=== PATIENT | female | born 1935 | race Caucasian/White ===

== ENCOUNTER 2020-09-24 15:55 | Inpatient (IN) | payer MEDICARE, BC ==
[~2020-09-24] VITALS: Ht 160 cm; Wt 41.3 kg
--- NOTE | 2020-09-24 16:10 | NUR ---
BIB DAUGHTER C/O DIZZINESS AND FAILURE TO THRIVE, "SHE IS NOT EATING, NOT DRINKING AND SLEEPS WHOLE DAYS FOR 1 WEEK NOW" PATIENT AWAKE ALERT AND ORIENTED X3, BREATHING EVEN AND UNLABORED, NO SOB NOTED.
[2020-09-24 16:47] LABS: BASOPHILS # (AUTO) 0.1 /CMM (0.0-0.2); BASOPHILS % (AUTO) 0.9 % (0.0-2.0); EOSINOPHILS % (AUTO) 0.3 % (0.0-6.0); HEMATOCRIT 42 % (33-45); HEMOGLOBIN 14.6 g/dL (11.5-14.8); LYMPHOCYTES # (AUTO) 0.9 /CMM (0.8-4.8); MEAN CORPUSCULAR HGB CONC 34 g/dl (31.0-36.0); MEAN CORPUSCULAR VOLUME 98 fL (82-100); MONOCYTES # (AUTO) 0.8 /CMM (0.1-1.30); MONOCYTES % (AUTO) 10.2 % (2.0-12.0); NEUTROPHILS # (AUTO) 6.3 /CMM (1.8-8.9); NEUTROPHILS % (AUTO) 77.6 % (43.0-81.0); PLATELET COUNT (AUTO) 206 /CMM (150-450); RED BLOOD CELL COUNT(AUTO) 4.31 MIL/uL (4.0-5.2); WHITE BLOOD COUNT (AUTO) 8.1 K/uL (4.3-11.0)
--- NOTE | 2020-09-24 16:56 | NUR ---
OXYGEN FURNACE OPERATOR AT BEDSIDE FOR XRAY.
[2020-09-24 16:59] LABS: CALCIUM, SERUM 9.7 mg/dL (8.5-10.1); CREATININE 0.9 mg/dL (0.6-1.3); POTASSIUM 3.3 mmol/L (3.5-5.1)
[2020-09-24 17:05] LABS: ALBUMIN 3.5 g/dL (3.4-5.0); BILIRUBIN,DIRECT 0.2 mg/dL (0.0-0.2); TOTAL PROTEIN, SERUM 6.6 g/dL (6.4-8.2)
[2020-09-24 17:51] LABS: THYROID STIMULATING HORMONE 0.818 uIU/mL (0.358-3.74)
[2020-09-24 18:10] LABS: BILIRUBIN,URINE SMALL (NEGATIVE); COLOR,URINE YELLOW (YELLOW); LEUKOCYTE ESTERASE ,URINE Negative (NEGATIVE); NITRITE, URINE Negative (NEGATIVE); PROTEIN,URINE Negative (NEGATIVE); UGLUCOSE Negative (NEGATIVE)
--- NOTE | 2020-09-24 18:13 | NUR ---
SHIRLEY AT BEDSIDE FOR EVAL. FAMILY AT BEDSIDE. COVID SWAB SENT TO LAB.
[2020-09-24 18:18] LABS: BACTERIA,URINE Rare /HPF (None Seen); RBC,URINE NONE SEEN /HPF (0-2); SQUAMOUS EPITHELIAL CELL,UR Few /HPF (None Seen); WBC,URINE NONE SEEN /HPF (0-3)
--- NOTE | 2020-09-24 18:19 | NUR ---
GPS BED 217 WHEN PATIENT IS MEDICALLY CLEARED.
[2020-09-24] MEDS ORDERED: MELA5TAB PO (18:52)
[2020-09-24] MEDS ORDERED: MAG30ORA PO (18:52)
[2020-09-24] MEDS ORDERED: LEVO88TA5 PO (18:52)
[2020-09-24] MEDS ORDERED: VORT20TA PO (18:52)
[2020-09-24] MEDS ORDERED: FLUO40CA49 PO (18:52)
[2020-09-24] MEDS ORDERED: QUET25TA PO (18:52)
[2020-09-24] MEDS ORDERED: DOCU-141 PO (18:52)
[2020-09-24] MEDS ORDERED: BUPR-96 PO (18:52)
[2020-09-24] MEDS ORDERED: CHOL200013 PO (18:52)
[2020-09-24] MEDS ORDERED: CALC200T42 PO (18:52)
[2020-09-24] MEDS ORDERED: ACET-2605 PO (18:52)
[2020-09-24] MEDS ORDERED: LOPE2CAP40 PO (18:52)
[2020-09-24] MEDS ORDERED: CYAN25008 SL (18:52)
[2020-09-24] MEDS ORDERED: DONE10TA44 PO (18:52)
[2020-09-24] MEDS ORDERED: LACT1CAP71 PO (18:52)
[2020-09-24 19:18] LABS: ALCOHOL, BLOOD < 3 mg/dL (0-0)
[2020-09-24 19:19] LABS: ACETAMINOPHEN < 2 ug/ml (10-30)
--- NOTE | 2020-09-24 19:32 | NUR ---
REPORT GIVEN TO LAURO SEYMOUR FOR EDILMA.
--- NOTE | 2020-09-24 20:10 | NUR ---
PT TO GPS VIA WHEELCHAIR.
[2020-09-24 20:30] VITALS: BP 132/66
[2020-09-24] MEDS ORDERED: DOCUSATE SODIUM 100 MG CAPSULE PO PRN (20:30)
[2020-09-24] MEDS ORDERED: MAG HYDROX/AL HYDROX/SIMETH 30 ML UDC PO PRN ×2 (20:30→21:00)
[2020-09-24] MEDS ORDERED: MISCELLANEOUS MED 1 EA EA PO PRN (20:30)
[2020-09-24] MEDS ORDERED: LOPERAMIDE HCL (2 MG CAP) 2 MG CAPSULE PO PRN (20:30)
--- NOTE | 2020-09-24 20:30 | NUR ---
PATIENT CAME FROM ER, AWAKE, A/O X4. NO S/S OF DISTRESS NOTED, NO COMPLAIN OF PAIN. V/S TAKEN AND RECORDED. FULL SKIN ASSESSMENTS DONE. SKIN IS INTACT. PATIENT IS COOPERATIVE. ENGAGED ON CONVERSATIONS. ANSWERS QUESTIONS. BLOOD SUGAR CHECKED PER [id number]. PATIENT IS AMBULATORY, STEADY GAIT. PATIENT REQUEST SOMETHING TO EAT. IV ON THE LEFT HAND G20 REMOVED, NO BLEEDING. PHOTO TAKEN AND PLACED IN THE CHART.
[2020-09-24] MEDS ORDERED: ACETAMINOPHEN 325 MG TABLET PO PRN (21:00)
[2020-09-24] MEDS ORDERED: BLOOD SUGAR DIAGNOSTIC 1 EACH STRIP IN ONE (21:00)
[2020-09-24] MEDS ORDERED: MAGNESIUM HYDROXIDE 30 ML UDC PO PRN (21:00)
[2020-09-24] MEDS: MIRTAZAPINE 15 MG TABLET PO SCH (22:00)
[2020-09-24] MEDS ORDERED: Medication Not On Formulary EA (Melatonin 5 MG) PO SCH (22:00)
[2020-09-25] MEDS: LEVOTHYROXINE SODIUM 88 MCG TABLET PO SCH (05:36)
[2020-09-25 08:00] VITALS: BP 119/64
[2020-09-25] MEDS ORDERED: ENSURE ENLIVE CHOC 237 ML CAN PO SCH (08:00)
[2020-09-25] MEDS: DONEPEZIL 5 MG TABLET PO SCH (09:15)
[2020-09-25] MEDS: LACTOBACILLUS RHAMNOSUS GG 1 EACH CAP.SPRINK PO SCH (09:15)
[2020-09-25] MEDS: CALCIUM CARBONATE (1250) 500 MG TABLET PO SCH ×2 (09:15→17:51)
[2020-09-25] MEDS: CHOLECALCIFEROL 1,000 UNIT TABLET (VIT D3) PO SCH (09:15)
[2020-09-25] MEDS: CYANOCOBALAMIN 500 MCG TABLET PO SCH (09:15)
[2020-09-25 16:00] VITALS: BP 128/72
[2020-09-25] MEDS: ENSURE ENLIVE CHOC 237 ML CAN PO SCH ×2 (16:17→17:53)
[2020-09-25 20:00] VITALS: BP 138/73
[2020-09-25 20:05] VITALS: BP 138/73
[2020-09-25] MEDS: MIRTAZAPINE 15 MG TABLET PO SCH (21:46)
[2020-09-26] MEDS: LEVOTHYROXINE SODIUM 88 MCG TABLET PO SCH (05:37)
[2020-09-26 06:28] LABS: BASOPHILS % (AUTO) 0.6 % (0.0-2.0); EOSINOPHILS % (AUTO) 0.3 % (0.0-6.0); HEMATOCRIT 44 % (33-45); HEMOGLOBIN 15.2 g/dL (11.5-14.8); LYMPHOCYTES # (AUTO) 0.9 /CMM (0.8-4.8); LYMPHOCYTES % (AUTO) 11.6 % (20.0-44.0); MEAN CORPUSCULAR HGB CONC 35 g/dl (31.0-36.0); MEAN CORPUSCULAR VOLUME 98 fL (82-100); MONOCYTES # (AUTO) 0.9 /CMM (0.1-1.30); MONOCYTES % (AUTO) 11.3 % (2.0-12.0); NEUTROPHILS # (AUTO) 5.9 /CMM (1.8-8.9); NEUTROPHILS % (AUTO) 76.2 % (43.0-81.0); PLATELET COUNT (AUTO) 182 /CMM (150-450); RED BLOOD CELL COUNT(AUTO) 4.46 MIL/uL (4.0-5.2); WHITE BLOOD COUNT (AUTO) 7.7 K/uL (4.3-11.0)
[2020-09-26 07:05] LABS: CALCIUM, SERUM 10.3 mg/dL (8.5-10.1); CREATININE 0.7 mg/dL (0.6-1.3)
[2020-09-26 08:00] VITALS: BP 124/73
[2020-09-26] MEDS: LACTOBACILLUS RHAMNOSUS GG 1 EACH CAP.SPRINK PO SCH (08:20)
[2020-09-26] MEDS: DONEPEZIL 5 MG TABLET PO SCH (08:20)
[2020-09-26] MEDS: CYANOCOBALAMIN 500 MCG TABLET PO SCH (08:20)
[2020-09-26] MEDS: CALCIUM CARBONATE (1250) 500 MG TABLET PO SCH ×2 (08:20→16:45)
[2020-09-26] MEDS: ENSURE ENLIVE CHOC 237 ML CAN PO SCH ×3 (08:20→16:45)
[2020-09-26] MEDS: CHOLECALCIFEROL 1,000 UNIT TABLET (VIT D3) PO SCH (08:20)
[2020-09-26] MEDS ORDERED: POTASSIUM CHLORIDE 20 MEQ TAB.PRT.SR PO ONE (09:30)
--- NOTE | 2020-09-26 13:42 | NUR ---
[facility]: Pedro from [facility] ([phone]) contacted the SW and stated that they will follow up with the pt once she is discharged back to her Assisted Living. He stated that the fax number is: [phone].
[2020-09-26 16:00] VITALS: BP 103/52
[2020-09-26 20:00] VITALS: BP 97/59
[2020-09-26] MEDS: MIRTAZAPINE 15 MG TABLET PO SCH (21:54)
[2020-09-26] MEDS: TEMAZEPAM 7.5 MG CAPSULE PO PRN (21:55)
[2020-09-27 06:00] VITALS: BP 97/59
[2020-09-27] MEDS: LEVOTHYROXINE SODIUM 88 MCG TABLET PO SCH (06:48)
[2020-09-27 07:11] LABS: CALCIUM, SERUM 9.2 mg/dL (8.5-10.1); CARBON DIOXIDE 30 mmol/L (21-32); CHLORIDE 101 mmol/L (98-107); CREATININE 0.5 mg/dL (0.6-1.3); GLUCOSE 150 mg/dL (74-106); POTASSIUM 3.3 mmol/L (3.5-5.1); SODIUM SERUM 138 mmol/L (136-145); UREA NITROGEN, BLOOD 20 mg/dL (7-18)
[2020-09-27 08:00] VITALS: BP 108/70
[2020-09-27] MEDS: CALCIUM CARBONATE (1250) 500 MG TABLET PO SCH ×2 (09:07→17:55)
[2020-09-27] MEDS: CYANOCOBALAMIN 500 MCG TABLET PO SCH (09:07)
[2020-09-27] MEDS: LACTOBACILLUS RHAMNOSUS GG 1 EACH CAP.SPRINK PO SCH (09:07)
[2020-09-27] MEDS: ENSURE ENLIVE CHOC 237 ML CAN PO SCH ×3 (09:07→17:55)
[2020-09-27] MEDS: DONEPEZIL 5 MG TABLET PO SCH (09:07)
[2020-09-27] MEDS: CHOLECALCIFEROL 1,000 UNIT TABLET (VIT D3) PO SCH (09:07)
--- NOTE | 2020-09-27 09:50 | NUR ---
Family Contact: SW contacted patient's daughter, Daniella Miranda [phone], to gather information for the patient's assessment as the patient is unable to provide this SW with sufficient information to complete assessment. Patient provided this SW with consent to speak with her daughter. SW was unable to reach Daniella, and left her a voicemail. SW will continue to follow up.
--- NOTE | 2020-09-27 09:51 | NUR ---
Facility Contact: CARLITO contacted [facility] [place] [address] [place] [address]; to discuss if patient will be able to return to the [facility] discharge. CARLITO spoke to Kina Darby who stated that this question would be best discussed with the patient's RN at the [facility], [place]. Patient's RNCarson was unavailable to speak at the moment and Kina stated that the patient's RN would call this SW back at a later time. CARLITO provided Kina with contact information.
--- NOTE | 2020-09-27 10:20 | NUR ---
Facility Contact: SW received a call from LION Byrd from [facility], [place] [address]; . SW asked patients RN if the patient will be able to return to this facility if there is a discharge plan for her to return to prior living arrangement. Patients RN stated that she can return to this facility. RN provided SW with information about the patient and stated that she has been sleeping a lot and has not been eating much since last 09/21/2020. RN mentioned that the patient has been neglecting her self-care and has been isolating. Patient has had a poor appetite and RN stated that she approximately lost 5-10 pounds. RN stated that the patient has had a few outbursts where she gets physical when staff have tried to give the patient her medication. SW informed RN that long term care social worker will be in contact with the facility if the patient and patients family agree for the patient to return to the facility.
[2020-09-27] MEDS ORDERED: POTASSIUM CHLORIDE 20 MEQ TAB.PRT.SR PO ONE (10:30)
--- NOTE | 2020-09-27 12:18 | NUR ---
Initial Discharge Plan: Pt plans to return to return to [facility], shelter at [address], [place] [address]; .CARLITO will work with the pt and the MD regarding appropriate discharge planning, SW will form a safe and proper discharge plan.
--- NOTE | 2020-09-27 13:40 | NUR ---
Family Contact: CARLITO received a missed call from patient's daughter Daniella, , who stated that she will be available around 14:00 and instructed CARLITO to contact her brother Jensen, if she is unavailable. CARLITO will call the patient's family at a later time.
--- NOTE | 2020-09-27 14:02 | NUR ---
Family Contact: Patient contacted patient's daughter, Daniella [phone] and patient's son, Jensen [phone] but was unable to speak to anyone. SW left a voicemail for Daniella and Jensen.
--- NOTE | 2020-09-27 15:43 | NUR ---
Family Contact: SW contacted patient's daughter, Daniella ([phone]), and discussed the pts treatment as well as receive collateral information. Pts daughter stated that the plan is for the pt to return to [facility] once she is stable. Information collected from the pts daughter: Pt has a history of alcoholism and was in Rehabilitation for 30 days in 2019. Pt has not been able to engage with alcohol since then. Pt has been psychiatrically hospitalized three times since 2012. After the last hospitalization the family placed the pt in Assisted Living. Pt has a history of not taking her medications and has a history of suicidal ideation as well.
[2020-09-27 16:00] VITALS: BP 140/58
[2020-09-27] MEDS ORDERED: risperiDONE 0.25 MG TABLET PO SCH (17:00)
[2020-09-27 20:00] VITALS: BP 122/64
[2020-09-27] MEDS: MIRTAZAPINE 15 MG TABLET PO SCH (21:30)
[2020-09-28] MEDS: LEVOTHYROXINE SODIUM 88 MCG TABLET PO SCH (05:34)
[2020-09-28 08:00] VITALS: BP 108/59
[2020-09-28] MEDS: DONEPEZIL 5 MG TABLET PO SCH (09:16)
[2020-09-28] MEDS: CYANOCOBALAMIN 500 MCG TABLET PO SCH (09:16)
[2020-09-28] MEDS: CHOLECALCIFEROL 1,000 UNIT TABLET (VIT D3) PO SCH (09:16)
[2020-09-28] MEDS: LACTOBACILLUS RHAMNOSUS GG 1 EACH CAP.SPRINK PO SCH (09:16)
[2020-09-28] MEDS: CALCIUM CARBONATE (1250) 500 MG TABLET PO SCH ×2 (09:16→16:14)
[2020-09-28] MEDS: ENSURE ENLIVE CHOC 237 ML CAN PO SCH ×3 (09:18→16:15)
[2020-09-28 16:00] VITALS: BP 135/83
[2020-09-28] MEDS: LORAZEPAM 0.5 MG TABLET PO PRN (16:25)
--- NOTE | 2020-09-28 16:29 | NUR ---
RN NOTE: ANXIETY PT SHAKING HANDS, SCREAMING, UNABLE TO REPOSITION SELF IN BED. MEDICATED WITH ATIVAN 0.5MG AND ASSISTED WITH REPOSITIONING IN BED. WILL MONITOR EFFECTIVENESS OF PRN.
[2020-09-28] MEDS: risperiDONE 0.25 MG TABLET PO SCH (18:00)
--- NOTE | 2020-09-28 18:42 | NUR ---
RN NOTE: FIRST DOSE RISPERDAL HELD DUE TO EMESIS. DR. CLEVELAND INFORMED. ORDER FOR ZOFRAN PO PRN
[2020-09-28] MEDS ORDERED: ONDANSETRON HCL 4 MG/5 ML SOLUTION PO PRN (19:00)
--- NOTE | 2020-09-28 20:00 | NUR ---
GPS RN NOTES RECEIVED LYING COMFORTABLY ON BED,CLAIMED SHE'S FREEZING,WARM BLANKET OFFERED,NAUSEA IMPROVED.MED COMPLIANT PER REPORT,FREQUENT ROUND OBSERVED PER PROTOCOL.WILL CONTINUE TO MONITOR BEHAVIOR.
[2020-09-28 20:34] VITALS: BP 150/83
[2020-09-28] MEDS: MIRTAZAPINE 15 MG TABLET PO SCH (21:55)
[2020-09-28 22:00] VITALS: BP 150/83
--- NOTE | 2020-09-28 22:00 | NUR ---
GPS RN NOTES REFUSED PO REMERON.OFFERED SLEEPING PILL BUT REFUSED WELL.NO NAUSEA/VOMITING NOTED.
[2020-09-29] MEDS: LEVOTHYROXINE SODIUM 88 MCG TABLET PO SCH (05:56)
[2020-09-29 08:00] VITALS: BP 151/65
[2020-09-29] MEDS: CHOLECALCIFEROL 1,000 UNIT TABLET (VIT D3) PO SCH (08:54)
[2020-09-29] MEDS: CYANOCOBALAMIN 500 MCG TABLET PO SCH (08:54)
[2020-09-29] MEDS: CALCIUM CARBONATE (1250) 500 MG TABLET PO SCH ×2 (08:55→16:48)
[2020-09-29] MEDS: DONEPEZIL 5 MG TABLET PO SCH (08:55)
[2020-09-29] MEDS: risperiDONE 0.25 MG TABLET PO SCH ×2 (08:55→21:47)
[2020-09-29] MEDS: LACTOBACILLUS RHAMNOSUS GG 1 EACH CAP.SPRINK PO SCH (08:55)
[2020-09-29] MEDS: ENSURE ENLIVE CHOC 237 ML CAN PO SCH ×3 (08:56→16:48)
[2020-09-29 16:00] VITALS: BP 107/54
[2020-09-29 20:25] VITALS: BP 92/55
[2020-09-29] MEDS: MIRTAZAPINE 15 MG TABLET PO SCH (21:47)
[2020-09-29] MEDS: TEMAZEPAM 7.5 MG CAPSULE PO PRN (22:32)
--- NOTE | 2020-09-29 22:33 | NUR ---
GPS RN NOTES: PATIENT REQUESTED FOR SLEEP MEDICATION. RESTORIL 7.5MG/1CAP GIVEN PO PRN ORDERED AT 2233. WILL CONTINUE TO MONITOR.
[2020-09-30] MEDS: LEVOTHYROXINE SODIUM 88 MCG TABLET PO SCH (06:12)
--- NOTE | 2020-09-30 06:23 | NUR ---
GPS RN NOTES: PATIENT REFUSED AM BLOOD DRAW FOR CBC, BMP, MAGNESIUM AND PHOSPHORUS. WILL CONTINUE TO MONITOR AND ENDORSE TO AM SHIFT.
--- NOTE | 2020-09-30 06:54 | NUR ---
GPS RN CLOSING NOTES: PATIENT IS LAYING ON BED AWAKE, A/O X2. PATIENT SLEPT 7HRS THIS SHIFT. PATIENT WAS MED COMPLIANT THIS SHIFT. NO S/S OF DISTRESS. RESPIRATION EVEN AND UNLABORED WITH EQUAL RISE AND FALL OF THE CHEST ON ROOM AIR. FLUID GIVEN TOLERATED. ALL PATIENT CARE NEEDS HAVE BEEN MET ANTICIPATED. BED IN LOWEST POSITION AND LOCKED WITH SIDE RAILS UP X2. WILL CONTINUE TO MONITOR FOR SAFETY, MOOD AND BEHAVIOR AND ENDORSE TO AM SHIFT
[2020-09-30 08:00] VITALS: BP 147/76
[2020-09-30] MEDS: CHOLECALCIFEROL 1,000 UNIT TABLET (VIT D3) PO SCH (08:54)
[2020-09-30] MEDS: CALCIUM CARBONATE (1250) 500 MG TABLET PO SCH ×2 (08:54→17:41)
[2020-09-30] MEDS: CYANOCOBALAMIN 500 MCG TABLET PO SCH (08:54)
[2020-09-30] MEDS: risperiDONE 0.25 MG TABLET PO SCH ×2 (08:55→21:17)
[2020-09-30] MEDS: ENSURE ENLIVE CHOC 237 ML CAN PO SCH ×3 (08:55→17:41)
[2020-09-30] MEDS: LACTOBACILLUS RHAMNOSUS GG 1 EACH CAP.SPRINK PO SCH (08:55)
[2020-09-30] MEDS: DONEPEZIL 5 MG TABLET PO SCH (08:55)
--- NOTE | 2020-09-30 09:00 | NUR ---
RN NOTE- CALM QUIET CONFUSED, ORIENTED TO PERSON PLACE , MED COMPLIANT, PO INTAKE POOR. ENCOURAGING INTAKE
--- NOTE | 2020-09-30 13:20 | NUR ---
Individual Contact: SW met with the pt at bedside and inquired about her current emotional and health status. Pt stated that she has been feeling better and less depressed but stated that her appetite is not improving because she is [place] and she is used to noodles, pasta and rice meals. SW stated that she was glad to hear that the pt wants to eat and just does not like the food. Pt stated that she is excited to go back to [facility]. SW stated that she was going to work on that.
[2020-09-30 20:09] VITALS: BP 101/70
[2020-09-30] MEDS: MIRTAZAPINE 15 MG TABLET PO SCH (21:16)
[2020-10-01] MEDS: LEVOTHYROXINE SODIUM 88 MCG TABLET PO SCH (05:24)
--- NOTE | 2020-10-01 06:40 | NUR ---
GPS RN CLOSING NOTES: PATIENT IS SLEEPING COMFORTABLY. SLEPT 8HRS THIS SHIFT. PATIENT WAS MED COMPLIANT THIS SHIFT. NO S/S OF DISTRESS. RESPIRATION EVEN AND UNLABORED WITH EQUAL RISE AND FALL OF THE CHEST ON ROOM AIR. FLUID GIVEN TOLERATED. ALL PATIENT CARE NEEDS HAVE BEEN MET ANTICIPATED. BED IN LOWEST POSITION AND LOCKED WITH SIDE RAILS UP X2. WILL CONTINUE TO MONITOR FOR SAFETY, MOOD AND BEHAVIOR AND ENDORSE TO AM SHIFT
[2020-10-01 06:46] LABS: BASOPHILS # (AUTO) 0.1 /CMM (0.0-0.2); BASOPHILS % (AUTO) 0.8 % (0.0-2.0); EOSINOPHILS % (AUTO) 0.9 % (0.0-6.0); HEMATOCRIT 39 % (33-45); HEMOGLOBIN 13.4 g/dL (11.5-14.8); LYMPHOCYTES # (AUTO) 3.3 /CMM (0.8-4.8); LYMPHOCYTES % (AUTO) 43.8 % (20.0-44.0); MEAN CORPUSCULAR HGB CONC 35 g/dl (31.0-36.0); MEAN CORPUSCULAR VOLUME 99 fL (82-100); MONOCYTES # (AUTO) 0.9 /CMM (0.1-1.30); MONOCYTES % (AUTO) 12.1 % (2.0-12.0); NEUTROPHILS # (AUTO) 3.2 /CMM (1.8-8.9); NEUTROPHILS % (AUTO) 42.4 % (43.0-81.0); PLATELET COUNT (AUTO) 228 /CMM (150-450); RED BLOOD CELL COUNT(AUTO) 3.93 MIL/uL (4.0-5.2); WHITE BLOOD COUNT (AUTO) 7.6 K/uL (4.3-11.0)
[2020-10-01 07:21] LABS: CALCIUM, SERUM 8.9 mg/dL (8.5-10.1); CARBON DIOXIDE 29 mmol/L (21-32); CHLORIDE 102 mmol/L (98-107); CREATININE 0.7 mg/dL (0.6-1.3); GLUCOSE 85 mg/dL (74-106); MAGNESIUM 1.9 mg/dL (1.8-2.4); PHOSPHORUS 3.5 mg/dL (2.5-4.9); POTASSIUM 3.3 mmol/L (3.5-5.1); SODIUM SERUM 139 mmol/L (136-145); UREA NITROGEN, BLOOD 16 mg/dL (7-18)
[2020-10-01 08:00] VITALS: BP 117/52
--- NOTE | 2020-10-01 08:30 | NUR ---
GPS RN NOTE PATIENT IS SELECTIVE WITH MEDICATION. SHE AT FIRST AGREED TO TAKE MEDICATION, BUT THEN WANTED TO KNOW WHY SHE HAS TO TAKE IT AND WHO IS "IN CHARGE" OF PRESCRIBING IT TO HER. SHE STATES "NOT EVERYONE GETS THIS MEDICATION". AFTER NEGOTIATING AND PROVIDING THE PATIENT WITH INFORMATION, SHE TOOK A FEW OF THE MEDICATIONS, BUT THEN STATED SHE DID NOT WANT TO TAKE ANYTHING ELSE BECAUSE "HER BODY DOESN'T WANT IT".
[2020-10-01] MEDS: CHOLECALCIFEROL 1,000 UNIT TABLET (VIT D3) PO SCH (08:47)
[2020-10-01] MEDS: CYANOCOBALAMIN 500 MCG TABLET PO SCH (08:47)
[2020-10-01] MEDS: CALCIUM CARBONATE (1250) 500 MG TABLET PO SCH ×2 (08:47→16:55)
[2020-10-01] MEDS: risperiDONE 0.25 MG TABLET PO SCH ×2 (08:48→21:00)
[2020-10-01] MEDS: DONEPEZIL 5 MG TABLET PO SCH (09:00)
[2020-10-01] MEDS: ENSURE ENLIVE CHOC 237 ML CAN PO SCH (09:00)
[2020-10-01] MEDS: LACTOBACILLUS RHAMNOSUS GG 1 EACH CAP.SPRINK PO SCH (09:00)
[2020-10-01] MEDS: POTASSIUM CHLORIDE 20 MEQ TAB.PRT.SR PO SCH ×2 (11:00→11:15)
--- NOTE | 2020-10-01 11:19 | NUR ---
GPS RN NOTE PATIENT REFUSED POTASSIUM. SHE STATES SHE DOES NOT WANT ANYTHING IN HER BODY AND THAT THE DOCTOR DOES NOT KNOW HOW TO TREAT HER.
[2020-10-01] MEDS: ONDANSETRON 4 MG TAB.RAPDIS PO PRN (11:58)
[2020-10-01] MEDS: ENSURE CLEAR 237 ML LIQUID (MIX BERRY) PO SCH ×2 (12:30→17:00)
--- NOTE | 2020-10-01 12:58 | NUR ---
GPS RN NOTE: NOTIFIED PEDRO EKG RESULT, NO NEW ORDERS AT THIS TIME
[2020-10-01] MEDS ORDERED: IV D5/ 0.9% NACL 500 ML IV ONE (14:00)
[2020-10-01] MEDS ORDERED: PANTOPRAZOLE 40 MG VIAL IV ONE (14:00)
[2020-10-01] MEDS: ENOXAPARIN SODIUM 40 MG/0.4 ML DISP.SYRIN SQ SCH (14:17)
[2020-10-01 14:39] LABS: BILIRUBIN,URINE NEGATIVE (NEGATIVE); COLOR,URINE YELLOW (YELLOW); LEUKOCYTE ESTERASE ,URINE NEGATIVE (NEGATIVE); NITRITE, URINE NEGATIVE (NEGATIVE); PROTEIN,URINE NEGATIVE (NEGATIVE); UGLUCOSE NEGATIVE (NEGATIVE); UROBILINOGEN,URINE 0.2 EU/dL (0.2)
[2020-10-01 16:00] VITALS: BP 129/61
--- NOTE | 2020-10-01 19:45 | NUR ---
RN NOTE PATIENT WAS ENCOURAGED PO FLUIDS & PT. HAD 1 APPLE JUICE AT THIS TIME. WILL KEEP OFFERING & ENCOURAGING PO INTAKE TOLERATED.
--- NOTE | 2020-10-01 19:55 | NUR ---
RN NOTE: PATIENT IS RESTING IN BED, CONFUSED, FORGETFUL, TALKS VERY SOFTLY, STATED," WHAT HAPPENED TO ME, WHY I AM HERE, WHAT IS GOING ON, I FEEL OK THEN WHY I AM HERE." PER AM RN REPORT, PATIENT HAD IVF DURING AM SHIFT, PT. ALSO HAD EKG DONE IN AM & WAS NOT FEELING WELL. VITALS ARE 149/88, 81, 17, 98.4, 94% AT RA. NO C/O PAIN VERBALIZED, NO ACUTE DISTRESS NOTED AT THIS TIME. PATIENT HAS IV CATHETER RIGHT FOREARM G [address], CLEAN/INTACT. SAFETY MEASURES IN PLACE. BED ALARM ON. WILL CONTINUE TO MONITOR FOR ANY EDILMA THROUGHOUT THE SHIFT.
[2020-10-01 20:05] VITALS: BP 149/88
[2020-10-01 20:29] VITALS: BP 149/88
--- NOTE | 2020-10-01 21:35 | NUR ---
RN NOTE: HELD RISPERDAL AT 2100 PER JASWANT CLEVELAND, HOLD ALL PSYCH MEDS & ANY SEDATIVES TONIGHT. HELD RISPERDAL 0.25 MG AT 2100 PER JASWANT'S ORDER. PATIENT IS SIPPING ON WATER INTERMITTENTLY. NO ACUTE CHANGES NOTED. WILL CONTINUE TO MONITOR FOR ANY EDILMA.
[2020-10-01] MEDS: MIRTAZAPINE 15 MG TABLET PO SCH (22:00)
--- NOTE | 2020-10-01 22:03 | NUR ---
RN NOTE: HELD REMERON AT 2200 PER JASWANT CLEVELAND, HOLD ALL PSYCH MEDS & ANY SEDATIVES TONIGHT. HELD REMERON 22.5 MG AT 2200 PER JASWANT'S ORDER. NO ACUTE CHANGES NOTED. WILL CONTINUE TO MONITOR FOR ANY EDILMA.
[2020-10-02] MEDS: LEVOTHYROXINE SODIUM 88 MCG TABLET PO SCH (05:53)
--- NOTE | 2020-10-02 06:16 | NUR ---
RN NOTE PATIENT HAD HALF JELLO, HALF PUDDING & 250 ML OF WATER, TOLERATED WELL. WILL CONTINUE TO MONITOR.
[2020-10-02 06:49] LABS: BASOPHILS % (AUTO) 0.6 % (0.0-2.0); EOSINOPHILS % (AUTO) 0.9 % (0.0-6.0); HEMATOCRIT 43 % (33-45); HEMOGLOBIN 14.6 g/dL (11.5-14.8); LYMPHOCYTES # (AUTO) 2.8 /CMM (0.8-4.8); LYMPHOCYTES % (AUTO) 35.4 % (20.0-44.0); MEAN CORPUSCULAR HGB CONC 34 g/dl (31.0-36.0); MEAN CORPUSCULAR VOLUME 99 fL (82-100); MONOCYTES # (AUTO) 0.9 /CMM (0.1-1.30); NEUTROPHILS # (AUTO) 4.1 /CMM (1.8-8.9); NEUTROPHILS % (AUTO) 52.1 % (43.0-81.0); PLATELET COUNT (AUTO) 266 /CMM (150-450); RED BLOOD CELL COUNT(AUTO) 4.31 MIL/uL (4.0-5.2); WHITE BLOOD COUNT (AUTO) 7.8 K/uL (4.3-11.0)
[2020-10-02 07:10] LABS: CALCIUM, SERUM 9.5 mg/dL (8.5-10.1); CREATININE 0.6 mg/dL (0.6-1.3); PHOSPHORUS 3.2 mg/dL (2.5-4.9); POTASSIUM 3.2 mmol/L (3.5-5.1)
[2020-10-02 08:00] VITALS: BP 152/82
[2020-10-02] MEDS: CYANOCOBALAMIN 500 MCG TABLET PO SCH (08:35)
[2020-10-02] MEDS: CHOLECALCIFEROL 1,000 UNIT TABLET (VIT D3) PO SCH (08:35)
[2020-10-02] MEDS: DONEPEZIL 5 MG TABLET PO SCH (08:35)
[2020-10-02] MEDS: risperiDONE 0.25 MG TABLET PO SCH ×2 (08:36→21:24)
[2020-10-02] MEDS: CALCIUM CARBONATE (1250) 500 MG TABLET PO SCH ×2 (08:36→16:14)
[2020-10-02] MEDS: LACTOBACILLUS RHAMNOSUS GG 1 EACH CAP.SPRINK PO SCH (08:36)
[2020-10-02] MEDS: ENSURE CLEAR 237 ML LIQUID (MIX BERRY) PO SCH ×2 (08:36→16:14)
[2020-10-02] MEDS: POTASSIUM CHLORIDE 20 MEQ TAB.PRT.SR PO SCH ×2 (12:18→13:18)
[2020-10-02] MEDS: ENOXAPARIN SODIUM 40 MG/0.4 ML DISP.SYRIN SQ SCH (14:00)
[2020-10-02 16:02] VITALS: BP 129/65
[2020-10-02] MEDS: LORAZEPAM 0.5 MG TABLET PO PRN (17:10)
--- NOTE | 2020-10-02 17:10 | NUR ---
RN NOTE PATIENT SUDDENLY SCREAMING AND YELLING IN THE HALLWAY. ATIVAN 0.5 MG PO PRN GIVEN. WILL CONTINUE TO MONITOR THROUGHOUT THE SHIFT.
--- NOTE | 2020-10-02 17:25 | NUR ---
RN NOTE PATIENT'S COMPLAINING ABOUT A TOOTHACHE. WHEN ASKED IF SHE WANTS TO HAVE A PAIN MEDICATION, PT REFUSED AND SAID "IT'S NOT PAIN, PAIN IS DIFFERENT FROM A TOOTHACHE" WILL CONTINUE TO MONITOR THROUGHOUT THE SHIFT.
[2020-10-02 19:57] VITALS: BP 98/66
[2020-10-02 21:00] VITALS: BP 98/66
[2020-10-02 21:20] VITALS: BP 127/71
[2020-10-02] MEDS: MIRTAZAPINE 15 MG TABLET PO SCH (22:07)
--- NOTE | 2020-10-02 22:07 | NUR ---
RN NOTE PATIENT'S VITALS ARE 127/71, 80, 18, 97.6, 96% AT RA. PATIENT HAD SNACK & PO FLUIDS. ALERT & FULLY AWAKE, TALKATIVE, PLEASANT, ABLE TO MAKE NEED KNOWN. SCHEDULED MEDICINES GIVEN TONIGHT. WILL CONTINUE TO MONITOR FOR ANY CHANGE OF CONDITION.
[2020-10-03] MEDS: LEVOTHYROXINE SODIUM 88 MCG TABLET PO SCH (06:08)
[2020-10-03 07:33] LABS: CALCIUM, SERUM 9.6 mg/dL (8.5-10.1); CREATININE 0.7 mg/dL (0.6-1.3); POTASSIUM 3.7 mmol/L (3.5-5.1)
[2020-10-03 08:00] VITALS: BP 94/50
[2020-10-03] MEDS: CALCIUM CARBONATE (1250) 500 MG TABLET PO SCH ×3 (09:00→16:56)
[2020-10-03] MEDS: CYANOCOBALAMIN 500 MCG TABLET PO SCH ×2 (09:00→09:22)
[2020-10-03] MEDS: risperiDONE 0.25 MG TABLET PO SCH ×4 (09:00→22:00)
[2020-10-03] MEDS: CHOLECALCIFEROL 1,000 UNIT TABLET (VIT D3) PO SCH ×2 (09:00→09:21)
[2020-10-03] MEDS: DONEPEZIL 5 MG TABLET PO SCH ×2 (09:00→09:21)
[2020-10-03] MEDS: LACTOBACILLUS RHAMNOSUS GG 1 EACH CAP.SPRINK PO SCH ×2 (09:00→09:22)
--- NOTE | 2020-10-03 09:00 | NUR ---
RN NOTE: MEDICATION REFUSAL PT REFUSED ALL 0900 MEDICATIONS. ATTEMPTED TO EDUCATE PT RE IMPORTANCE OF MEDICATION COMPLIANCE. PT CONT'D TO REFUSE X 3. WILL CONT TO MONITOR FOR SAFETY AND BEHAVIOR.
[2020-10-03] MEDS: ENSURE ENLIVE CHOC 237 ML CAN PO SCH ×3 (09:25→17:26)
--- NOTE | 2020-10-03 13:00 | NUR ---
RN NOTE :Patient lethargic ,BP 94/50 ,PULSE 74 , notified with new order Megace once a day .will continue to monitor.
[2020-10-03] MEDS: ENOXAPARIN SODIUM 40 MG/0.4 ML DISP.SYRIN SQ SCH (14:00)
--- NOTE | 2020-10-03 15:33 | NUR ---
RN NOTE: PT MORE AWAKE. PO FLUIDS ENCOURAGED.
--- NOTE | 2020-10-03 16:30 | NUR ---
RN NOTE:Patient refused to eat or drink due lethargy . notified with new orders ,all orders carried out .
--- NOTE | 2020-10-03 16:56 | NUR ---
RN NOTE: 1700 PO MEDICATIONS HELD DUE TO LETHARGY
[2020-10-03 19:44] VITALS: BP 167/78
[2020-10-03 20:00] VITALS: BP 167/78
--- NOTE | 2020-10-03 20:25 | NUR ---
GPS RN NOTE RECEIVED PATIENT LAYING IN BED & IS NOTED TO BE LETHARGIC & SEDATED. AROUSABLE TO VERBAL STIMULI. PER AM RN REPORT, PATIENT HAD PO FLUIDS DURING AM SHIFT BUT DID NOT EAT MUCH, PATIENT'S VITALS ARE 162/77, 71, 18, 97.4, 95% AT RA. PATIENT C/O NAUSEA, NO VOMITING, PATIENT REFUSED ZOFRAN PO. TRAN FLORENCE NOTIFIED ABOUT THESE FINDINGS. TRAN ORDERED TO REPEAT UA & PROCALCITONIN STAT. PER TRAN, SHE WILL LOOK INTO PATIENT'S CHART FOR ANY OTHER NEW ORDERS. ORDERS NOTED & CARRIED OUT. CONTINUING TO MONITOR THE PATIENT CLOSELY.
[2020-10-03] MEDS ORDERED: ONDANSETRON HCL/PF 4 MG/2 ML VIAL IV PRN (21:00)
--- NOTE | 2020-10-03 21:08 | NUR ---
RN NOTE PATIENT WAS C/O NAUSEA INTERMITTENTLY, OFFERED ZOFRAN PO PRN, PATIENT REFUSED X3, NOTIFIED TRAN [place] NP ORDERED ZOFRAN 4 MG IV Q6H PRN SINCE PATIENT HAS RFA HEPLOCK IN PLACE TO RESOLVE NAUSEA BUT PATIENT ALSO REFUSED TO GET ZOFRAN IV ORDERED DESPITE OF RISKS & BENEFITS EXPLANATIONS. WILL TRY AGAIN IN FEW MINUTES. CONTINUING TO MONITOR THE PATIENT CLOSELY.
[2020-10-03] MEDS: ONDANSETRON 4 MG TAB.RAPDIS PO PRN (21:11)
--- NOTE | 2020-10-03 21:12 | NUR ---
LION NORE: NAUSEA PATIENT IS FEELING NAUSEOUS, ZOFRAN 4 MG 1 TAB ADMINISTERED ORDERED. WILL CONTINUE TO MONITOR THE PATIENT CLOSELY FOR ANY EDILMA.
[2020-10-03] MEDS: MIRTAZAPINE 15 MG TABLET PO SCH (22:00)
--- NOTE | 2020-10-03 22:12 | NUR ---
RN NOTE: HELD REMERON & RISPERDAL PATIENT IS LETHARGIC & SEDATED. HELD REMERON & RISPERDAL SCHEDULED AT 2200. TRAN [place]OR[place] NOTIFIED.
--- NOTE | 2020-10-03 22:35 | NUR ---
RN NOTE PATIENT IS WAKING UP INTERMITTENTLY BUT UNABLE TO GO & SIT SAFELY ON THE TOILET. OFFERED BED ESPINOSA TO THE PATIENT TO COLLECT URINE SPECIMEN. WILL RECHECK THE PATIENT IN FEW MINUTES IF THERE IS ANY URINE OUTPUT.
--- NOTE | 2020-10-03 23:15 | NUR ---
RN NOTE URINE SPECIMEN COLLECTED & SENT TO LAB.
[2020-10-03 23:18] LABS: BILIRUBIN,URINE NEGATIVE (NEGATIVE); COLOR,URINE YELLOW (YELLOW); LEUKOCYTE ESTERASE ,URINE TRACE (NEGATIVE); NITRITE, URINE POSITIVE (NEGATIVE); PH,URINE 8.5 (5.0-8.0); PROTEIN,URINE NEGATIVE (NEGATIVE); UGLUCOSE NEGATIVE (NEGATIVE)
[2020-10-03 23:24] LABS: BACTERIA,URINE 3+ /HPF (None Seen); MUCUS,URINE Few /LPF (None Seen); SQUAMOUS EPITHELIAL CELL,UR Many /HPF (None Seen); URINE AMORPHOUS PHOSPHATES Many /HPF (None Seen); WBC,URINE 21-50 /HPF (0-3)
--- NOTE | 2020-10-03 23:40 | NUR ---
RN NOTE UA RESULTED & NOTIFIED TRAN [place]ORENCE.
--- NOTE | 2020-10-03 23:53 | NUR ---
RN NOTE TRAN REVIEWED UA RESULTS & ORDERED KEFLEX 500 MG BID X 5 DAYS, AM LABS. ORDERS NOTED & CARRIED OUT. CONTINUING TO GIVE PO FLUIDS TO THE PATIENT & PATIENT TAKES FEW SIPS AT A TIME. PATIENT IS AFEBRILE. WILL CONTINUE TO MONITOR.
[2020-10-04] MEDS: CEPHALEXIN MONOHYDRATE 500 MG CAPSULE PO SCH ×3 (00:22→17:23)
--- NOTE | 2020-10-04 05:29 | NUR ---
RN NOTE: PATIENT IS INTERMITTENTLY SLEEPING, ALERT & AWAKE AT THIS TIME, TALKATIVE, PT. HAD CONVERSATION WITH THE NURSE FOR 10-15 MINUTES ABOUT HER PERSONAL LIFE & EXPERIENCE AN RN IN [facility] [place]. PATIENT IS FORGETFUL AT TIMES. ENCOURAGED PO FLUIDS TOLERATED, PATIENT IS ABLE TO DRINK & TOLERATE WELL WITHOUT FEELING NAUSEOUS AT THIS TIME BUT STILL REFUSES TO EAT ANY SNACK.
[2020-10-04] MEDS: LEVOTHYROXINE SODIUM 88 MCG TABLET PO SCH (06:19)
[2020-10-04 06:49] LABS: BASOPHILS % (AUTO) 0.5 % (0.0-2.0); EOSINOPHILS % (AUTO) 0.4 % (0.0-6.0); HEMATOCRIT 43 % (33-45); HEMOGLOBIN 14.5 g/dL (11.5-14.8); LYMPHOCYTES # (AUTO) 2.1 /CMM (0.8-4.8); LYMPHOCYTES % (AUTO) 20.5 % (20.0-44.0); MEAN CORPUSCULAR HGB CONC 34 g/dl (31.0-36.0); MEAN CORPUSCULAR VOLUME 100 fL (82-100); MONOCYTES # (AUTO) 0.8 /CMM (0.1-1.30); MONOCYTES % (AUTO) 7.9 % (2.0-12.0); NEUTROPHILS # (AUTO) 7.1 /CMM (1.8-8.9); NEUTROPHILS % (AUTO) 70.7 % (43.0-81.0); PLATELET COUNT (AUTO) 289 /CMM (150-450); RED BLOOD CELL COUNT(AUTO) 4.27 MIL/uL (4.0-5.2)
[2020-10-04 07:01] VITALS: BP 167/78
[2020-10-04 07:49] LABS: CALCIUM, SERUM 8.4 mg/dL (8.5-10.1); CREATININE 0.8 mg/dL (0.6-1.3); PHOSPHORUS 2.8 mg/dL (2.5-4.9); POTASSIUM 3.5 mmol/L (3.5-5.1)
[2020-10-04 08:00] VITALS: BP 102/74
[2020-10-04] MEDS: ONDANSETRON 4 MG TAB.RAPDIS PO PRN (08:00)
--- NOTE | 2020-10-04 08:02 | NUR ---
RN NOTE: NAUSEA PATIENT IS FEELING NAUSEOUS, ZOFRAN 4 MG 1 TAB ADMINISTERED ORDERED. WILL CONTINUE TO MONITOR THE PATIENT CLOSELY FOR ANY EDILMA.
[2020-10-04] MEDS: ENSURE ENLIVE CHOC 237 ML CAN PO SCH ×3 (08:59→17:22)
[2020-10-04] MEDS: MEGESTROL ACETATE SUSP 400 MG/10 ML UDC PO SCH (09:00)
[2020-10-04] MEDS: CALCIUM CARBONATE (1250) 500 MG TABLET PO SCH ×2 (09:16→17:23)
[2020-10-04] MEDS: CHOLECALCIFEROL 1,000 UNIT TABLET (VIT D3) PO SCH (09:16)
[2020-10-04] MEDS: DONEPEZIL 5 MG TABLET PO SCH (09:16)
[2020-10-04] MEDS: LACTOBACILLUS RHAMNOSUS GG 1 EACH CAP.SPRINK PO SCH (09:16)
[2020-10-04] MEDS: CYANOCOBALAMIN 500 MCG TABLET PO SCH (09:17)
[2020-10-04] MEDS: MEGESTROL ACETATE 40 MG TABLET PO SCH ×2 (09:34→17:23)
[2020-10-04] MEDS: ENOXAPARIN SODIUM 40 MG/0.4 ML DISP.SYRIN SQ SCH (09:46)
--- NOTE | 2020-10-04 12:35 | NUR ---
Family Contact: Pts son, Jensen ([phone]), contacted the SW and stated that he was upset with the lack of contact from the hospital. SW stated that the family has had the opportunity to call the nurses and the social welfare research worker whenever they wanted an update but the pts son stated that he expected the hospitla to be ones calling every couple of days with an update since we are the ones caring for the pt. SW expressed her apologies and stated that she will make an attempt to call every couple of days. Pts son then expressed his concern with not having spoken to the MD since the pt was admitted. SW stated that she will pass along his number to the MD so that he can call the pts son with an update. SW stated that she can provide him with an update to the best of her abilities and went over the pts diagnosis some progress notes, and her medications. Pts son expressed his concern with the diagnosis and the medications that the pt was taking and SW stated that he can speak to the MD about that. CARLITO then explained the hold status and the discharge plan to send the pt back to [facility].
--- NOTE | 2020-10-04 12:40 | NUR ---
Family Contact: SW contacted patient's daughter, Daniella ([phone]), and left her a voicemail stating that she would like to give her an update whenever the time is convenient for her.
[2020-10-04 16:00] VITALS: BP 122/52
[2020-10-04 20:00] VITALS: BP 107/55
--- NOTE | 2020-10-04 20:00 | NUR ---
Ms. BURR IS IN GOOD SPIRITS. READING A MAGAZINE IN BED. ALERT AND ORIENTATED X3. PLEASENT SMILING DENIES HEARING VOICES OR SEING THINGS
[2020-10-04] MEDS: MIRTAZAPINE 15 MG TABLET PO SCH ×2 (21:41→21:46)
[2020-10-04] MEDS ORDERED: MIRTAZAPINE 15 MG TABLET PO SCH (22:00)
[2020-10-05] MEDS: LEVOTHYROXINE SODIUM 88 MCG TABLET PO SCH (05:42)
[2020-10-05 08:00] VITALS: BP 135/65
[2020-10-05] MEDS: ENSURE ENLIVE CHOC 237 ML CAN PO SCH ×3 (08:21→17:45)
[2020-10-05] MEDS: MEGESTROL ACETATE SUSP 400 MG/10 ML UDC PO SCH (09:00)
[2020-10-05] MEDS: LACTOBACILLUS RHAMNOSUS GG 1 EACH CAP.SPRINK PO SCH (09:21)
[2020-10-05] MEDS: CYANOCOBALAMIN 500 MCG TABLET PO SCH (09:21)
[2020-10-05] MEDS: MEGESTROL ACETATE 40 MG TABLET PO SCH ×2 (09:21→17:45)
[2020-10-05] MEDS: DONEPEZIL 5 MG TABLET PO SCH (09:21)
[2020-10-05] MEDS: CALCIUM CARBONATE (1250) 500 MG TABLET PO SCH ×2 (09:21→17:45)
[2020-10-05] MEDS: CHOLECALCIFEROL 1,000 UNIT TABLET (VIT D3) PO SCH (09:21)
[2020-10-05] MEDS: CEPHALEXIN MONOHYDRATE 500 MG CAPSULE PO SCH ×2 (09:22→17:45)
[2020-10-05] MEDS: ENOXAPARIN SODIUM 40 MG/0.4 ML DISP.SYRIN SQ SCH (14:00)
--- NOTE | 2020-10-05 14:18 | NUR ---
Family Contact: CARLITO called the pts son, Jensen ([phone]), and left a voicemail stating that the pt will be discharged on Saturday back to [facility] and CARLITO would like to provide some updates.
--- NOTE | 2020-10-05 14:19 | NUR ---
Family Contact: SW contacted patient's daughter, Daniella ([phone]), and was unable to leave a voicemail due to the mail box being full.
--- NOTE | 2020-10-05 14:23 | NUR ---
Facility Contact: CARLITO received a call from LION Byrd ([phone]) from [facility] and informed her that the pt is going to be discharged back to the facility on Saturday. SW went over the pts behaviors with the RN and stated that the pt has shown improvement. RN stated that they are going to need a new physicians report completed that she will email to the SW.
[2020-10-05 16:00] VITALS: BP 101/56
[2020-10-05] MEDS: MIRTAZAPINE 15 MG TABLET PO SCH (21:07)
[2020-10-05 21:24] VITALS: BP 143/73
[2020-10-06] MEDS: LEVOTHYROXINE SODIUM 88 MCG TABLET PO SCH (06:01)
[2020-10-06 08:00] VITALS: BP 121/66
[2020-10-06] MEDS: CALCIUM CARBONATE (1250) 500 MG TABLET PO SCH ×2 (08:38→16:49)
[2020-10-06] MEDS: ENSURE ENLIVE CHOC 237 ML CAN PO SCH ×3 (08:38→16:50)
[2020-10-06] MEDS: DONEPEZIL 5 MG TABLET PO SCH (08:38)
[2020-10-06] MEDS: LACTOBACILLUS RHAMNOSUS GG 1 EACH CAP.SPRINK PO SCH (08:38)
[2020-10-06] MEDS: CHOLECALCIFEROL 1,000 UNIT TABLET (VIT D3) PO SCH (08:38)
[2020-10-06] MEDS: CYANOCOBALAMIN 500 MCG TABLET PO SCH (08:39)
[2020-10-06] MEDS: CEPHALEXIN MONOHYDRATE 500 MG CAPSULE PO SCH ×2 (08:39→16:49)
[2020-10-06] MEDS: MEGESTROL ACETATE 40 MG TABLET PO SCH ×2 (08:39→16:49)
[2020-10-06] MEDS: MEGESTROL ACETATE SUSP 400 MG/10 ML UDC PO SCH (09:00)
--- NOTE | 2020-10-06 10:07 | NUR ---
Facility Contact: CARLITO faxed completed physicians report and recent chest x-ray to [facility],
--- NOTE | 2020-10-06 10:12 | NUR ---
Family Contact: Pts son, Jensen ([phone]) to discuss what time the family would be able to leaf size picker the pt, at the time of discharge. SW was unable to reach pts son, and left a voicemail.
--- NOTE | 2020-10-06 10:16 | NUR ---
Family Contact: Pts daughter, Daniella ([phone]) to discuss what time the family would be able to pear picker the patient, at the time of discharge. SW was unable to reach pts daughter, and left her a voicemail.
--- NOTE | 2020-10-06 10:52 | NUR ---
Facility Contact: contacted [facility], , to inquire who the patient's repairer pump and psychiatrist are. Sissy from the facility stated that she only has a contact for the pts PCP-Dr. Polly Gaines, .
--- NOTE | 2020-10-06 12:52 | NUR ---
Family Contact: SW received a call from pts son, Jensen ([phone]) who stated that he will be able to milk pickup truck driver the pt at around 1600/1630.
--- NOTE | 2020-10-06 13:30 | NUR ---
Probable Cause Hearing: Pts [id number] hold was upheld for grave disability.
[2020-10-06] MEDS: ENOXAPARIN SODIUM 40 MG/0.4 ML DISP.SYRIN SQ SCH (14:00)
[2020-10-06 16:00] VITALS: BP 115/57
--- NOTE | 2020-10-06 19:25 | NUR ---
RECEIVED PATIENT RESTING IN BED, AWAKE, KNOWS HER NAME. PATIENT IS READING A BOOK, CALM. NO S/S OF DISTRESS NOTED. ASKED FEW QUESTIONS. HARD OF HEARING. ENGAGED TO CONVERSATIONS.
[2020-10-06 20:28] VITALS: BP 115/64
[2020-10-06] MEDS: MIRTAZAPINE 15 MG TABLET PO SCH (20:42)
[2020-10-07] MEDS: LEVOTHYROXINE SODIUM 88 MCG TABLET PO SCH (06:09)
[2020-10-07 08:00] VITALS: BP 104/59
[2020-10-07] MEDS: ENSURE ENLIVE CHOC 237 ML CAN PO SCH ×2 (08:30→12:18)
[2020-10-07] MEDS: LACTOBACILLUS RHAMNOSUS GG 1 EACH CAP.SPRINK PO SCH (08:35)
[2020-10-07] MEDS: CYANOCOBALAMIN 500 MCG TABLET PO SCH (08:35)
[2020-10-07] MEDS: MEGESTROL ACETATE 40 MG TABLET PO SCH (08:36)
[2020-10-07] MEDS: CALCIUM CARBONATE (1250) 500 MG TABLET PO SCH (08:36)
[2020-10-07] MEDS: DONEPEZIL 5 MG TABLET PO SCH (08:36)
[2020-10-07] MEDS: CHOLECALCIFEROL 1,000 UNIT TABLET (VIT D3) PO SCH (08:36)
[2020-10-07] MEDS: CEPHALEXIN MONOHYDRATE 500 MG CAPSULE PO SCH (08:36)
[2020-10-07] MEDS: MEGESTROL ACETATE SUSP 400 MG/10 ML UDC PO SCH (09:00)
--- NOTE | 2020-10-07 09:01 | NUR ---
RN-NOTES MEGACE 10ML NOT ADMINISTER DUE TO PATIENT ALREADY ON MEGACE 40MG TAB. P.O BID.
--- NOTE | 2020-10-07 14:16 | NUR ---
Discharge Note: Pt will be discharged to [facility] located at [address], [address] [place] [address]; [phone]. CARLITO contacted pts son, Jensen ([phone]) and pts daughter, Daniella ([phone]) to inform them of the discharge and coordinate who will pickling tank operator the pt upon discharge. CARLITO left them a voicemail. Pts son, Jensen called SW back stating that he will be able to pickling tank operator the pt around 4/430 P and was informed of the discharge. Upon discharge, the pt appears to be alert and oriented x2 (self and place). Pt appears to be in a depressed and labile mood. Pt denies both suicidal and homicidal ideation as well as auditory and visual hallucinations. Pt appears to be ambulatory with an unsteady gait. Pt appears to be well groomed and appropriately dressed. Pt will continue to be under the care of her psychiatrist through, [facility], located at [address], [place] [address]; and body make up artist, Dr. Polly Gaines, located at [address] [address]; . The multidisciplinary exit care form were done, printed, signed, and given to the patient.
[2020-10-07] MEDS: ENOXAPARIN SODIUM 40 MG/0.4 ML DISP.SYRIN SQ SCH (14:41)
[2020-10-07 16:00] VITALS: BP 108/52
--- NOTE | 2020-10-07 17:11 | NUR ---
RN- DISCHARGE NOTES RECEIVED DISCHARGE ORDER FROM DR. MILLARD/ DR. CROCKETT ALSO MADE AWARE WITH ORDERS. PATIENT WAS DISCHARGE TO [facility]. PATIENT DID NOT VERBALIZE SI/HI,DENIES VISUAL/AUDITORY HALLUCINATIONS AT THE TIME OF DISCHARGE. PATIENT REFUSED FULL BODY ASSESSMENT PRIOR TO DISCHARGE. STATED" I DON'T HAVE ANY PROBLEMS WITH MY SKIN". VITAL SIGNS OF BP 108/52, PULSE 85,RESP. 18,TEMP. 98.3,AND O2 SAT OF 99% RA.PATIENT LEFT THE UNIT IN STABLE CONDITION A/O X2 WITH ALL HER BELONGINGS. SERVICE CENTER COORDINATOR AND [employer] MGR STAFF WHEELED PATIENT IN THE LOBBY FOR SAFETY.NOTED PATIENT SUDDENLY QUIET AND NOT TALKING BUT ABLE TO NOD HER HEAD WHEN THE SERVICE CENTER COORDINATOR ASK IF SHE WANTS TO GO WITH HER SON PRISCILLA .SERVICE CENTER COORDINATOR ALSO ASK PRISCILLA ( PATIENT'S SON) IF HE WILL STILL TAKE THE PATIENT WITH HIM ,HE REPLIED " ABSOLUTELY ". MASK WAS GIVEN TO THE PATIENT.
== END 2020-10-07 17:00 | DRG 881 ==
LOC: ER 16:03 → GPS 19:48
PROVIDERS: ADMIT Psychiatry & Neurology Psychiatry
DX: F32.9 Major depressive disorder, single episode, unspecified (principal); N39.0 Urinary tract infection, site not specified; G30.9 Alzheimer's disease, unspecified; F02.80 Dementia in other diseases classified elsewhere, unspecified severity, without behavioral disturbance, psychotic disturbance, mood disturbance, and anxiety; E87.6 Hypokalemia; E03.9 Hypothyroidism, unspecified; R62.7 Adult failure to thrive; Z73.6 Limitation of activities due to disability; Z79.899 Other long term (current) drug therapy; I67.2 Cerebral atherosclerosis; I70.0 Atherosclerosis of aorta; R73.9 Hyperglycemia, unspecified
CPT/HCPCS: 36415; 70450-TC; 71045-TC; 80048-TC; 80061-TC; 80076-TC; 81001; 82962-TC; 83735-TC; 84100-TC; 84443-TC; 84484-TC; 85025-TC; 87081-TC; 87086-TC; 87186-TC; 97110-TC; 97112-TC; 97116-TC; 97530-TC; C9113; C9803; G0480; J1650; J2405; J7040; J7042; Q0162